=== PATIENT | female | born 1990 ===

== ENCOUNTER → 2022-02-21 | Day surgery (SDC) | payer OTHER ==
[~2022-02-21] VITALS: Ht 160 cm; Wt 70.3 kg
[~2022-02-21] MED LIST: KETOROLAC TROME10 MG PO
[2022-02-21 07:27] LABS: HCG (URINE) SCREEN NEGATIVE (NEGATIVE)
[2022-02-21 07:40] LABS: HCT 26.9 % (37.0-47.0); HGB 7.1 g/dl (12.5-16.0); MCH 16.3 pg (25.0-31.0); MCHC 26.4 g/dL (32.0-36.0); MCV 61.7 fL (78.0-100.0); PLT 302 K/uL (150-400); RBC 4.36 M/uL (4.20-5.40); RDW 21.9 % (11.5-14.0); WBC 5.7 K/uL (4.0-10.5)
== END | disposition home or self-care (01) ==
LOC: FAS 06:38
PROVIDERS: Specialist
DX: N72 Inflammatory disease of cervix uteri (principal); D25.9 Leiomyoma of uterus, unspecified; D64.9 Anemia, unspecified; Z98.51 Tubal ligation status
CPT/HCPCS: 36415; 84703; 86850; 86900; 86901; J0690; J1100; J1885; J2250; J2370; J2405; J2704; J2710; J3010; J7120; Q9968